=== PATIENT | male | born 1980 | race Caucasian/White ===

== ENCOUNTER 2017-02-12 14:04 | Emergency (ER) | payer BC ==
[~2017-02-12] VITALS: Ht 175.3 cm; Wt 90.7 kg
[2017-02-12 14:12] VITALS: TEMP 37.3; Ht 175.3 cm; Wt 90.7 kg
[2017-02-12] MEDS ORDERED: OPTIRAY 320 IV PRN (15:00)
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
[2017-02-12 15:14] LABS: ISTAT CREATININE 1.1 mg/dl (0.6-1.3); ISTAT IONIZED CALCIUM 1.22 mmol/l (1.12-1.32)
--- NOTE | 2017-02-12 15:50 | DIAGNOSTIC IMAGING REPORT ---
HEAD WITHOUT CONTRAST (CT) CT DOSE: HISTORY: Trauma eval for trauma TECHNIQUE: Multiaxial CT images of the head were performed without the use of intravenous contrast. Comparison: None. Findings: The paranasal sinuses and mastoid air cells are clear. The calvarium and skull base are intact. The ventricles and sulci are within normal limits. There is no mass, hematoma, midline shift, or acute infarct. Impression: No acute intracranial abnormality. The above report was generated using voice recognition software. It may contain grammatical, syntax or spelling errors. Electronically signed by: Fransisco Koenig M.D. 02/12/2017 3:49 PM Dictated Date/Time: 02/12/2017 3:48 PM
--- NOTE | 2017-02-12 15:53 | DIAGNOSTIC IMAGING REPORT ---
CERVICAL SPINE W/O CT DOSE: HISTORY: Trauma eval for trauma TECHNIQUE: Multiaxial CT images of the cervical spine were performed and reformatted in the sagittal and coronal plane without the use of contrast. COMPARISON: None. FINDINGS: No fractures. No subluxation. Prevertebral soft tissues and the C1-C2 interval are intact. No pneumothorax. IMPRESSION: No fractures within the cervical spine. The above report was generated using voice recognition software. It may contain grammatical, syntax or spelling errors. Electronically signed by: Fransisco Koenig M.D. 02/12/2017 3:51 PM Dictated Date/Time: 02/12/2017 3:50 PM
--- NOTE | 2017-02-12 15:56 | DIAGNOSTIC IMAGING REPORT ---
(CHEST) THORAX WITH CT DOSE: 2652.81 mGy.cm HISTORY: Trauma eval for trauma TECHNIQUE: Multiaxial CT images of the chest were performed following the intravenous administration of contrast. COMPARISON: None. FINDINGS: The lungs are clear. The mediastinal vascular structures are within normal limits. No mediastinal or hilar lymphadenopathy. No pleural effusion or pneumothorax. Limited views of the upper abdomen demonstrate a normal liver and spleen. IMPRESSION: No significant abnormality identified within the chest. The above report was generated using voice recognition software. It may contain grammatical, syntax or spelling errors. Electronically signed by: Fransisco Koenig M.D. 02/12/2017 3:55 PM Dictated Date/Time: 02/12/2017 3:52 PM
--- NOTE | 2017-02-12 16:01 | DIAGNOSTIC IMAGING REPORT ---
ABD/PELVIS IV CONTRAST ONLY CT DOSE: HISTORY: Trauma eval for trauma TECHNIQUE: Multiaxial CT images of the abdomen and pelvis were performed following the use of intravenous contrast. COMPARISON STUDY: None. FINDINGS: Lung bases are clear. Liver enhances uniformly. There is a 3 cm hemangioma of the superior right hepatic lobe. Spleen enhances uniformly. There is no ascites. Pancreas and kidneys are within normal limits. Bowel pattern is nonobstructive. Bladder is midline. No free fluid within the pelvic cul-de-sac. Survey evaluation of the bony structures shows no acute abnormality IMPRESSION: No significant abnormality identified within the abdomen or pelvis. The above report was generated using voice recognition software. It may contain grammatical, syntax or spelling errors. Electronically signed by: Fransisco Koenig M.D. 02/12/2017 4:00 PM Dictated Date/Time: 02/12/2017 3:55 PM
[2017-02-12 16:37] VITALS: BP 134/75; PULSE 64; O2SAT 98
== END 2017-02-12 16:38 | disposition home or self-care (01) ==
LOC: C.EDB 14:08 → C.EDA 16:38
DX: S20.212A Contusion of left front wall of thorax, initial encounter (principal); V86.59XA Driver of other special all-terrain or other off-road motor vehicle injured in nontraffic accident, initial encounter; R07.89 Other chest pain; J45.909 Unspecified asthma, uncomplicated; Z82.49 Family history of ischemic heart disease and other diseases of the circulatory system